=== PATIENT | female | born 1945 | race Caucasian/White ===

== ENCOUNTER 2016-08-15 14:18 | Emergency (ER) | payer MEDICARE ==
[~2016-08-15] VITALS: Ht 165.1 cm; Wt 80.0 kg
[2016-08-15] MEDS ORDERED: KEFLEX500 M1 PO (16:07)
[2016-08-15] MEDS ORDERED: PERCOCET 5/325M1 TAB PO (16:10)
[2016-08-15] MEDS ORDERED: IBUPROFEN600 MG PO (16:10)
[2016-08-15 16:15] VITALS: BP 154/95
== END 2016-08-15 16:15 | disposition home or self-care (01) ==
LOC: ED 14:18
DX: S83.92XA Sprain of unspecified site of left knee, initial encounter (principal); M25.562 Pain in left knee; W17.2XXA Fall into hole, initial encounter; Z85.3 Personal history of malignant neoplasm of breast; Z98.84 Bariatric surgery status

== ENCOUNTER 2017-03-26 09:34 | Emergency (ER) | payer OTHER, MEDICARE ==
[~2017-03-26] VITALS: Ht 165.1 cm; Wt 80.0 kg
[~2017-03-26 09:34] MED LIST: IBUPROFEN600 MG PO; KEFLEX500 M1 PO; PERCOCET 5/325M1 TAB PO
[2017-03-26 10:34] VITALS: BP 144/89
== END 2017-03-26 10:28 | disposition home or self-care (01) | DRG 951 ==
LOC: ED 09:34
DX: Z04.8 Encounter for examination and observation for other specified reasons (principal); W10.9XXA Fall (on) (from) unspecified stairs and steps, initial encounter; Y93.89 Activity, other specified; Y92.238 Other place in hospital as the place of occurrence of the external cause